=== PATIENT | female | born 1995 | race Caucasian/White ===

== ENCOUNTER → 2017-02-15 17:49 | Observation (INO) ==
[2017-02-15 17:31] LABS: Bilirubin,Urine Negative (Negative); Blood,Urine Negative (Negative); Clarity,Urine Cloudy (Clear); Color,Urine Yellow (Yellow); Glucose,Urine (UA) Normal (Normal); Ketones,Urine Negative (Negative); Leukocyte Esterase,Urine Negative (Negative); Nitrite,Urine Negative (Negative); PH,Urine 6.5 pH Units (5.0-8.0); Protein,Urine Negative (Neg-Trace); Urobilinogen,Urine Normal (Normal)
[2017-02-15 17:33] LABS: Bacteria,Urine None Seen per hpf (None-Few); Hyaline Casts,Urine None Seen per lpf (None-Few); RBC,Urine 0-3 per hpf (0-3); Squamous Epithelial Cell,Urine Many per lpf (None-Few)
[2017-02-15 17:36] LABS: Amphetamine Screen,Urine Negative ng/mL (Cutoff=1000); Barbiturate Screen,Urine Negative ng/mL (Cutoff=200); Benzodiazepines Screen,Urine Negative ng/mL (Cutoff=200); Cannabinoid Screen,Urine Negative ng/mL (Cutoff = 50); Cocaine Screen,Urine Negative ng/mL (Cutoff= 300); Opiate Screen,Urine Negative ng/mL (Cutoff=300); Phencyclidine Screen,Urine Negative ng/mL (Cutoff=25)
[2017-02-15 17:41] LABS: Amorphous Sediment,Urine Moderate (Few)
--- NOTE | 2017-02-15 17:47 | OB/GYN Progress Note ---
Date of Encounter: 02/15/17 Time of Encounter: 17:44 - Assessment and Plan (1) Constipation Current Visit: Yes Status: Acute Patient may return to emergency room, if desired, for constipation. Discussed importance of water during and increasing fruit/vegetable intake. Discussed trying otc medications such as colace BID and senekot at HS, if needed for constipation. Qualifiers: Constipation type: unspecified constipation type Qualified Code(s): K59.00 - Constipation, unspecified (2) 26 weeks gestation of Current Visit: Yes Status: Acute Follow up with Dr Garcia as scheduled for routine care and prn. Subjective - Subjective Principal diagnosis: Constipation Interval history: Ms Cisse a 21 year old at 26 weeks and 1 day gestation arrives from the emergency room to r/o labor. She complains of pressure in her "taint" and that she hasn't had a bowel movement since before Thanksgiving. She states that she does have blood from her rectum when wiping after an attempt to have a bowel movement. She states positive movement. She denies contractions, cramping, vaginal discharge, and vaginal bleeding. She is seen in the office by Dr Garcia. Her mother states that she has had problems with irregular bowels for a long time and will only drink apple juice and pop. Antepartum ROS: new complaints, movement normal, no vaginal bleeding, no contractions Objective - Exam FHR: auscultation normal, category 1 FHR comments: FHTs 150's appropriate for gestational age Abdomen: Present: normal appearance, soft, gravid Uterus: Absent: firm, tenderness Comments: SSE - cervix visually closed Vaginal exam - Closed, thick, high. No stool palpable in colon. - Labs Labs: Abnormal lab results Urine Clarity Cloudy (Clear) A 02/15/17 17:06 Urine Microscopic WBC 3-5 per hpf (0-3) H 02/15/17 17:06 Ur Squamous Epith Cells Many per lpf (None-Few) H 02/15/17 17:06 Amorphous Sediment Moderate (Few) H 02/15/17 17:06
== END | disposition home or self-care (01) ==
LOC: 1NENULAB
PROVIDERS: ADMIT Obstetrics & Gynecology; ATTEND Obstetrics & Gynecology

== ENCOUNTER → 2017-04-09 21:30 | Observation (INO) ==
[2017-04-09 20:43] LABS: Bilirubin,Urine Negative (Negative); Blood,Urine Negative (Negative); Clarity,Urine Cloudy (Clear); Color,Urine Yellow (Yellow); Glucose,Urine (UA) Normal (Normal); Ketones,Urine Negative (Negative); Leukocyte Esterase,Urine Negative (Negative); Nitrite,Urine Negative (Negative); PH,Urine 6.5 pH Units (5.0-8.0); Protein,Urine Negative (Neg-Trace); Specific Gravity,Urine 1.018 (1.010-1.025); Urobilinogen,Urine Normal (Normal)
[2017-04-09 20:45] LABS: Bacteria,Urine None Seen per hpf (None-Few); Hyaline Casts,Urine None Seen per lpf (None-Few); RBC,Urine 0-3 per hpf (0-3); Squamous Epithelial Cell,Urine Many per lpf (None-Few); WBC,Urine 0-3 per hpf (0-3)
[2017-04-09 20:52] LABS: Amphetamine Screen,Urine Negative ng/mL (Cutoff=1000); Barbiturate Screen,Urine Negative ng/mL (Cutoff=200); Benzodiazepines Screen,Urine Negative ng/mL (Cutoff=200); Cannabinoid Screen,Urine Negative ng/mL (Cutoff = 50); Cocaine Screen,Urine Negative ng/mL (Cutoff= 300); Opiate Screen,Urine Negative ng/mL (Cutoff=300); Phencyclidine Screen,Urine Negative ng/mL (Cutoff=25)
--- NOTE | 2017-04-15 08:58 | OB/GYN Progress Note ---
Date of Encounter: 04/09/17 Time of Encounter: 21:00 - Assessment and Plan (1) 33 weeks gestation of Status: Acute (2) uterine contractions in third trimester, antepartum Status: Acute SVE closed and thick. Discharge home with precautions. Pt encouraged to drink more water. (3) NST (non-stress test) reactive Status: Acute Subjective - Subjective Antepartum ROS: movement normal, contractions, no loss of fluid, no vaginal bleeding Objective - Exam FHR: category 1 FHR comments: NST reactive Auscultation: bilateral: normal Abdomen: Present: soft, gravid Uterus: Present: normal. Absent: tenderness Cervical dilation: closed/thick/high - Labs Labs: Abnormal lab results Urine Clarity Cloudy (Clear) A 04/09/17 20:39 Ur Squamous Epith Cells Many per lpf (None-Few) H 04/09/17 20:39
== END | disposition home or self-care (01) ==
LOC: 1NENULAB
PROVIDERS: ADMIT Obstetrics & Gynecology; ATTEND Obstetrics & Gynecology

== ENCOUNTER → 2017-04-28 16:30 | Observation (INO) ==
[2017-04-28 15:44] LABS: Bilirubin,Urine Negative (Negative); Blood,Urine Negative (Negative); Clarity,Urine Cloudy (Clear); Color,Urine Yellow (Yellow); Glucose,Urine (UA) Normal (Normal); Ketones,Urine Negative (Negative); Leukocyte Esterase,Urine Trace (Negative); Nitrite,Urine Negative (Negative); Protein,Urine Trace mg/dL (Neg-Trace); Specific Gravity,Urine 1.021 (1.010-1.025); Urobilinogen,Urine Normal (Normal)
[2017-04-28 15:53] LABS: Bacteria,Urine None Seen per hpf (None-Few); Hyaline Casts,Urine None Seen per lpf (None-Few); RBC,Urine 0-3 per hpf (0-3); Squamous Epithelial Cell,Urine Many per lpf (None-Few)
[2017-04-28 16:04] LABS: Amphetamine Screen,Urine Negative ng/mL (Cutoff=1000); Barbiturate Screen,Urine Negative ng/mL (Cutoff=200); Benzodiazepines Screen,Urine Negative ng/mL (Cutoff=200); Cannabinoid Screen,Urine Negative ng/mL (Cutoff = 50); Cocaine Screen,Urine Negative ng/mL (Cutoff= 300); Opiate Screen,Urine Negative ng/mL (Cutoff=300); Phencyclidine Screen,Urine Negative ng/mL (Cutoff=25)
--- NOTE | 2017-04-28 16:29 | OB/GYN Progress Note ---
Date of Encounter: 04/28/17 Time of Encounter: 16:27 - Assessment and Plan (1) 36 weeks gestation of Current Visit: Yes Status: Acute (2) Vaginal itching Current Visit: Yes Status: Acute Vaginosis panel obtained. Told patient she could use external Vagisil itch relief cream for the next 24 hours, but not to use internally. Discharged home with 1 to return to triage precautions. Vaginosis panel positive will send prescription through [facility] (3) NST (non-stress test) reactive Current Visit: No Status: Acute Baseline 135 Subjective - Subjective Interval history: 36+3 weeks gestation presents to triage for evaluation of vaginal itching and pain. Patient states over the last couple issues notice an increase and outer labial irritation and itching. She reports good movement, denies vaginal bleeding or leaking of fluid. Patient does say she has had an increased discharge over the last couple days Antepartum ROS: movement normal, no loss of fluid, no vaginal bleeding, no contractions Objective - Vital Signs Vital Signs: Intake and Output 04/28/17 04/28/17 04/28/17 07:59 15:59 23:59 Other: Weight 80.6 kg Patient Weight 04/28/17 23:59 Weight 80.6 kg - Exam FHR: auscultation normal FHR comments: Baseline 135 Abdomen: Present: normal appearance, soft, gravid Cervical dilation: /-3 - Labs Labs: Abnormal lab results Urine Clarity Cloudy (Clear) A 04/28/17 15:35 Ur Leukocyte Esterase Trace (Negative) H 04/28/17 15:35 Urine Microscopic WBC 3-5 per hpf (0-3) H 04/28/17 15:35 Ur Squamous Epith Cells Many per lpf (None-Few) H 04/28/17 15:35
[2017-04-28 17:33] LABS: Candida DNA ***DETECTED*** (Not Detect); Gardnerella DNA Not Detected (Not Detect); Trichomonas DNA Not Detected (Not Detect)
== END | disposition home or self-care (01) ==
LOC: 1NENULAB
PROVIDERS: ADMIT Obstetrics & Gynecology; ATTEND Obstetrics & Gynecology

== ENCOUNTER → 2017-05-06 00:15 | Observation (INO) ==
[2017-05-05 22:34] LABS: Bilirubin,Urine Negative (Negative); Blood,Urine Negative (Negative); Clarity,Urine Cloudy (Clear); Color,Urine Yellow (Yellow); Glucose,Urine (UA) Normal (Normal); Ketones,Urine 40 mg/dL (Negative); Leukocyte Esterase,Urine Trace (Negative); Nitrite,Urine Negative (Negative); PH,Urine 6.5 pH Units (5.0-8.0); Protein,Urine 30 mg/dL (Neg-Trace); Specific Gravity,Urine 1.014 (1.010-1.025); Urobilinogen,Urine Normal (Normal)
[2017-05-05 22:38] LABS: Bacteria,Urine Few per hpf (None-Few); Hyaline Casts,Urine Few per lpf (None-Few); RBC,Urine 0-3 per hpf (0-3); Squamous Epithelial Cell,Urine Many per lpf (None-Few)
[2017-05-05 22:41] LABS: Amphetamine Screen,Urine Negative ng/mL (Cutoff=1000); Barbiturate Screen,Urine Negative ng/mL (Cutoff=200); Benzodiazepines Screen,Urine Negative ng/mL (Cutoff=200); Cannabinoid Screen,Urine Negative ng/mL (Cutoff = 50); Cocaine Screen,Urine Negative ng/mL (Cutoff= 300); Opiate Screen,Urine Negative ng/mL (Cutoff=300); Phencyclidine Screen,Urine Negative ng/mL (Cutoff=25)
--- NOTE | 2017-05-05 23:23 | OB/GYN Progress Note ---
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 (2) Sciatic nerve pain Current Visit: Yes Status: Acute Qualifiers: Laterality: unspecified laterality Qualified Code(s): M54.30 - Sciatica, unspecified side (3) NST (non-stress test) reactive Current Visit: No Status: Acute Subjective - Subjective Principal diagnosis: Body aches, vaginal "lightning" Interval history: Ms Cisse is a 22 year old at 37 weeks 3 days gestation that arrives to labor and delivery with c/o increased fatigue, body aches, and low grade fever that is reduced by tylenol since 0400 this morning. She also c/o vaginal pain that is lightning like and bilateral leg numbness that comes and goes. This is complicated by an LGA fetus that had an EFW of 3664g 10 days ago. She denies headache, vision changes, epigastric pain, vaginal bleeding, and cramping. She states positive movement - decreased, but still having more than 6 movements per hour. She is seen by Dr Garcia in the office. Antepartum ROS: movement normal, no loss of fluid, no vaginal bleeding, no contractions Objective - Vital Signs Vital Signs: Intake and Output 05/05/17 05/05/17 05/05/17 07:59 15:59 23:59 Other: Weight 83.3 kg Patient Weight 05/05/17 23:59 Weight 83.3 kg - Exam FHR: auscultation normal, category 1 (140 baseline) FHR comments: irregular contractions Auscultation: bilateral: normal Abdomen: Present: normal appearance, soft, gravid Uterus: Present: normal. Absent: firm, bogginess, tenderness Cervical dilation: 1 Cervix effacement: thick station: -2 Comments: BLE trace to 1+ edema, 2+ reflexes Patient experienced vaginal lightning while in the room, no change in FHTs, no contraction per palpation. - Labs Labs: Abnormal lab results Urine Clarity Cloudy (Clear) A 05/05/17 22:22 Urine Protein 30 mg/dL (Neg-Trace) H 05/05/17 22:22 Urine Ketones 40 mg/dL (Negative) H 05/05/17 22:22 Ur Leukocyte Esterase Trace (Negative) H 05/05/17 22:22 Urine Microscopic WBC 3-5 per hpf (0-3) H 05/05/17 22:22 Ur Squamous Epith Cells Many per lpf (None-Few) H 05/05/17 22:22
[2017-05-05 23:49] LABS: Protein/Creatinine Ratio,Urine 0.23 mg/mg (0.00-0.20)
== END | disposition home or self-care (01) ==
LOC: 1NENULAB
PROVIDERS: ADMIT Advanced Practice Midwife; ATTEND Advanced Practice Midwife

== ENCOUNTER → 2017-05-10 22:38 | Observation (INO) ==
[2017-05-10 21:58] LABS: Bilirubin,Urine Negative (Negative); Blood,Urine Negative (Negative); Color,Urine Yellow (Yellow); Glucose,Urine (UA) Normal (Normal); Ketones,Urine Negative (Negative); Leukocyte Esterase,Urine Negative (Negative); Nitrite,Urine Negative (Negative); PH,Urine 6.5 pH Units (5.0-8.0); Protein,Urine 30 mg/dL (Neg-Trace); Specific Gravity,Urine 1.023 (1.010-1.025); Urobilinogen,Urine Normal (Normal)
[2017-05-10 22:00] LABS: Clarity,Urine Hazy (Clear); Hyaline Casts,Urine None Seen per lpf (None-Few); RBC,Urine 0-3 per hpf (0-3); Squamous Epithelial Cell,Urine Many per lpf (None-Few)
[2017-05-10 22:04] LABS: Amphetamine Screen,Urine Negative ng/mL (Cutoff=1000); Barbiturate Screen,Urine Negative ng/mL (Cutoff=200); Benzodiazepines Screen,Urine Negative ng/mL (Cutoff=200); Cannabinoid Screen,Urine Negative ng/mL (Cutoff = 50); Cocaine Screen,Urine Negative ng/mL (Cutoff= 300); Opiate Screen,Urine Negative ng/mL (Cutoff=300); Phencyclidine Screen,Urine Negative ng/mL (Cutoff=25)
[2017-05-10 22:14] LABS: Bacteria,Urine Few per hpf (None-Few)
[2017-05-10 22:25] LABS: Protein/Creatinine Ratio,Urine 0.27 mg/mg (0.00-0.20)
--- NOTE | 2017-05-10 22:30 | OB/GYN Progress Note ---
Date of Encounter: 05/10/17 Time of Encounter: 22:28 - Assessment and Plan (1) 38 weeks gestation of Current Visit: Yes Status: Acute Seen only by nursing Reactive NST Mild headache, normal BP, Urine increased protein, normal urine protein creatinine Discharge with labor precautions Discharge home with follow up in office with routine care as scheduled within one week, and PRN (2) NST (non-stress test) reactive Current Visit: No Status: Acute Subjective - Subjective Principal diagnosis: Contractions lost mucous plug last night Interval history: Seen by nurses only for contractions throughout the day and lost mucous plug last night. Would "like to be induced because my baby is huge". Patient is not 39 weeks, encouraged to follow up with routine care in the office. Antepartum ROS: movement normal, contractions, no loss of fluid, no vaginal bleeding Objective - Exam FHR: auscultation normal, category 1 FHR comments: Contractions irregular to every 10 minutes over a 1 hour time period Cervical dilation: 1-2 Cervix effacement: 60 station: -1 Comments: Per RN exam - Labs Labs: Abnormal lab results Urine Clarity Hazy (Clear) A 05/10/17 21:40 Urine Protein 30 mg/dL (Neg-Trace) H 05/10/17 21:40 Urine Microscopic WBC 3-5 per hpf (0-3) H 05/10/17 21:40 Ur Squamous Epith Cells Many per lpf (None-Few) H 05/10/17 21:40 Protein/Creatinin Ratio 0.27 mg/mg (0.00-0.20) H 05/10/17 21:40 Urine Total Protein 49 mg/dL (1-14) H 05/10/17 21:40
== END | disposition home or self-care (01) ==
LOC: 1NENULAB
PROVIDERS: ADMIT Advanced Practice Midwife; ATTEND Advanced Practice Midwife

== ENCOUNTER → 2021-06-09 10:42 | Observation (INO) ==
[2021-06-09 10:35] LABS: Amorphous Sediment,Urine Few per hpf (None-Few); Bacteria,Urine Few per hpf (None-Few); Bilirubin,Urine Negative (Negative); Blood,Urine Negative (Negative); Clarity,Urine Turbid (Clear); Color,Urine Light-Yellow (Yellow); Glucose,Urine (UA) Normal (Normal); Ketones,Urine Negative (Negative); Leukocyte Esterase,Urine Negative (Negative); Mucus,Urine Few per lpf (None-Few); Nitrite,Urine Negative (Negative); Protein,Urine Trace mg/dL (Neg-Trace); RBC,Urine 0-3 per hpf (0-3); Specific Gravity,Urine 1.016 (1.010-1.025); Squamous Epithelial Cell,Urine Few per hpf (None-Few); Urobilinogen,Urine Normal (Normal); WBC,Urine 0-3 per hpf (0-3)
== END | disposition home or self-care (01) ==
LOC: 1NENULAB
PROVIDERS: ADMIT Obstetrics & Gynecology; ATTEND Obstetrics & Gynecology

== ENCOUNTER → 2021-06-14 02:50 | Observation (INO) ==
[2021-06-14 00:45] LABS: Bacteria,Urine Few per hpf (None-Few); Bilirubin,Urine Negative (Negative); Blood,Urine Negative (Negative); Clarity,Urine Turbid (Clear); Color,Urine Yellow (Yellow); Glucose,Urine (UA) Normal (Normal); Ketones,Urine Negative (Negative); Leukocyte Esterase,Urine Small (Negative); Mucus,Urine Few per lpf (None-Few); Nitrite,Urine Negative (Negative); PH,Urine 6.5 pH Units (5.0-8.0); Protein,Urine 30 mg/dL (Neg-Trace); Squamous Epithelial Cell,Urine Many per hpf (None-Few); WBC,Urine 0-3 per hpf (0-3)
[2021-06-14 02:02] LABS: Candida DNA DETECTED (Not Detect); Gardnerella DNA Not Detected (Not Detect); Trichomonas DNA Not Detected (Not Detect)
== END | disposition home or self-care (01) ==
LOC: 1NENULAB
PROVIDERS: ADMIT Registered Nurse; ATTEND Registered Nurse

== ENCOUNTER → 2021-07-12 17:03 | Observation (INO) ==
[2021-07-12 14:47] LABS: Bacteria,Urine Moderate per hpf (None-Few); Bilirubin,Urine Negative (Negative); Blood,Urine Negative (Negative); Clarity,Urine Turbid (Clear); Color,Urine Light-Yellow (Yellow); Glucose,Urine (UA) Normal (Normal); Ketones,Urine Negative (Negative); Leukocyte Esterase,Urine Moderate (Negative); Mucus,Urine Few per lpf (None-Few); Nitrite,Urine Negative (Negative); Protein,Urine Trace mg/dL (Neg-Trace); RBC,Urine 0-3 per hpf (0-3); Renal Epithelial Cells,Urine Few per hpf (None-Few); Specific Gravity,Urine 1.011 (1.010-1.025); Squamous Epithelial Cell,Urine Many per hpf (None-Few); Transitional Epi Cells,Urine Few per hpf (None-Few)
[~2021-07-12 17:03] MED LIST: Ringers Solution, Lactated 1,000 ML IVC ONE; Ringers Solution, Lactated 1,000 ML IVC SCH
== END | disposition home or self-care (01) ==
LOC: 1NENULAB
PROVIDERS: ADMIT Student in an Organized Health Care Education/Training Program; ATTEND Student in an Organized Health Care Education/Training Program

== ENCOUNTER → 2021-07-13 18:03 | Observation (INO) | END | disposition home or self-care (01) | LOC: 1NENULAB | PROVIDERS: ADMIT Obstetrics & Gynecology; ATTEND Obstetrics & Gynecology ==

== ENCOUNTER 2021-07-19 16:29 | Inpatient (IN) ==
[2021-07-19 15:10] LABS: Bacteria,Urine Few per hpf (None-Few); Bilirubin,Urine Negative (Negative); Blood,Urine Negative (Negative); Clarity,Urine Turbid (Clear); Color,Urine Yellow (Yellow); Glucose,Urine (UA) Normal (Normal); Ketones,Urine Negative (Negative); Leukocyte Esterase,Urine Negative (Negative); Mucus,Urine Few per lpf (None-Few); Nitrite,Urine Negative (Negative); PH,Urine 6.5 pH Units (5.0-8.0); Protein,Urine 30 mg/dL (Neg-Trace); RBC,Urine 0-3 per hpf (0-3); Specific Gravity,Urine 1.019 (1.010-1.025); Squamous Epithelial Cell,Urine Moderate per hpf (None-Few)
[2021-07-19 15:13] LABS: Hematocrit 30.1 % (35.3-44.9); Hemoglobin 9.7 g/dL (11.5-15.4); Lymphocytes # 1.9 K/mcL (0.6-4.6); Mean Corpuscular HGB Conc 32.2 g/dL (31.6-35.5); Mean Corpuscular Hemoglobin 26.4 pg (28.0-33.3); Mean Platelet Volume 10.3 fL (9.4-12.4); Nucleated Red Blood Cells 0.2 /100 WBC (0); Platelet Count 279 K/mcL (140-400); Red Blood Count 3.67 M/mcL (3.82-4.97); White Blood Count 13.2 K/mcL (4.3-11.1)
[2021-07-19 15:20] LABS: Amphetamine Screen,Urine Negative ng/mL (Cutoff=1000); Barbiturate Screen,Urine Negative ng/mL (Cutoff=200); Benzodiazepines Screen,Urine Negative ng/mL (Cutoff=200); Cannabinoid Screen,Urine Negative ng/mL (Cutoff = 50); Cocaine Screen,Urine Negative ng/mL (Cutoff= 300); Opiate Screen,Urine Negative ng/mL (Cutoff=300); Phencyclidine Screen,Urine Negative ng/mL (Cutoff=25)
[2021-07-19 15:43] LABS: Influenza A PCR Negative (Negative); Influenza B PCR Negative (Negative); Resp. Syncytial Virus PCR Negative (Negative)
[2021-07-19 15:44] LABS: SARS-CoV-2 by PCR (In House) Negative (Negative)
[2021-07-19 16:07] LABS: Anisocytosis 1+ (Not Present); Monocytes # 0.3 K/mcL (0.0-1.3); Neutrophils # 10.8 K/mcL (1.6-8.9); Platelet Estimate Normal (Normal); Polychromasia 1+ (Not Present)
[~2021-07-19 16:29] MED LIST changes: +CeFAZolin 2,000 MG/120 ML BAG IVPB ONE; +Famotidine 20 MG/2 ML VIAL IVP ONE; +Metoclopramide 10 MG/2 ML VIAL IVP ONE; +Naloxone 0.4 MG/ML INJ IVP PRN; +Ondansetron 4 MG/2 ML VIAL IVP PRN; +Oxytocin 30 UNIT/503 ML BAG IVC SCH; -Ringers Solution, Lactated 1,000 ML IVC ONE
[2021-07-19] MEDS ORDERED: *HR* Morphine Sulfate/PF 10 MG/10 ML AMPUL ONE (18:01)
[2021-07-19] MEDS ORDERED: *HR* FentaNYL (PF) 100 MCG/2 ML VIAL ONE (18:01)
[2021-07-19] MEDS ORDERED: Ondansetron 4 MG/2 ML VIAL ONE (18:02)
[2021-07-19] MEDS ORDERED: Acetaminophen IV 1,000 MG/100 ML BAG IVPB ONE (18:15)
[2021-07-19] MEDS ORDERED: Ketorolac 30 MG/ML VIAL ONE (18:15)
[2021-07-19] MEDS ORDERED: Oxytocin 30 UNIT/503 ML BAG IVC SCH (21:50)
[2021-07-19] MEDS ORDERED: Ondansetron 4 MG/2 ML VIAL IVP PRN (21:50)
[2021-07-19] MEDS ORDERED: Rho Immune Globulin 1,500 UNIT SYRINGE IM ONE (21:50)
[2021-07-19] MEDS ORDERED: Metoclopramide 10 MG/2 ML VIAL IVP PRN (21:50)
[2021-07-19] MEDS: Ibuprofen 600 MG TABLET PO SCH (23:08)
[2021-07-19] MEDS: Acetaminophen 325 MG TABLET PO SCH (23:09)
[2021-07-20] MEDS: Ringers Solution, Lactated 1,000 ML IVC SCH ×2 (00:47→07:03)
[2021-07-20 03:42] LABS: Basophils # 0.1 K/mcL (0.0-0.2); Basophils % 0.6 %; Eosinophils % 0.3 %; Hematocrit 28.2 % (35.3-44.9); Hemoglobin 8.9 g/dL (11.5-15.4); Immature Granulocytes % 3.3 % (0-4); Lymphocytes # 1.7 K/mcL (0.6-4.6); Lymphocytes % 11.9 %; Mean Corpuscular HGB Conc 31.6 g/dL (31.6-35.5); Mean Corpuscular Hemoglobin 26.4 pg (28.0-33.3); Mean Corpuscular Volume 83.7 fL (83.0-100.0); Mean Platelet Volume 10.1 fL (9.4-12.4); Monocytes % 7.1 %; Neutrophils # 11.1 K/mcL (1.6-8.9); Platelet Count 229 K/mcL (140-400); Red Blood Count 3.37 M/mcL (3.82-4.97); Red Cell Distribution Width 12.7 % (11.5-14.5); Segmented Neutrophils % 76.8 %; White Blood Count 14.5 K/mcL (4.3-11.1)
[2021-07-20] MEDS: Ibuprofen 600 MG TABLET PO SCH ×4 (06:32→23:50)
[2021-07-20] MEDS: Acetaminophen 325 MG TABLET PO SCH ×4 (06:32→23:50)
[2021-07-20] MEDS: Prenatal Vit/FA 1 EACH TABLET PO SCH (08:12)
[2021-07-20] MEDS ORDERED: Ringers Solution, Lactated 500 ML IVC ONE (09:47)
[2021-07-20] MEDS: *HR* OxyCODONE Immed Rel 5 MG TABLET PO PRN (17:35)
[2021-07-20 20:23] VITALS: TEMP 98.2
[2021-07-20] MEDS: Simethicone 80 MG TAB.CHEW PO PRN (20:31)
[2021-07-21 06:31] VITALS: BP 122/74; PULSE 86; O2SAT 95
[2021-07-21] MEDS: *HR* OxyCODONE Immed Rel 5 MG TABLET PO PRN ×2 (08:11→13:04)
[2021-07-21] MEDS: Ibuprofen 600 MG TABLET PO SCH ×3 (08:11→14:36)
[2021-07-21] MEDS: Prenatal Vit/FA 1 EACH TABLET PO SCH (08:11)
[2021-07-21] MEDS: Simethicone 80 MG TAB.CHEW PO PRN (10:01)
[2021-07-21] MEDS: Acetaminophen 325 MG TABLET PO SCH ×2 (10:01→14:36)
[2021-07-21] MEDS ORDERED: Bisacodyl 10 MG RECTAL SUPPOSITORY RC ONE (10:16)
[2021-07-21 14:11] LABS: Basophils # 0.1 K/mcL (0.0-0.2); Basophils % 0.8 %; Eosinophils # 0.2 K/mcL (0.0-0.6); Eosinophils % 1.5 %; Hematocrit 28.4 % (35.3-44.9); Hemoglobin 8.8 g/dL (11.5-15.4); Immature Granulocytes % 5.3 % (0-4); Lymphocytes # 1.9 K/mcL (0.6-4.6); Mean Corpuscular Hemoglobin 26.6 pg (28.0-33.3); Mean Corpuscular Volume 85.8 fL (83.0-100.0); Mean Platelet Volume 10.5 fL (9.4-12.4); Monocytes # 0.8 K/mcL (0.0-1.3); Monocytes % 5.4 %; Neutrophils # 10.8 K/mcL (1.6-8.9); Platelet Count 309 K/mcL (140-400); Red Blood Count 3.31 M/mcL (3.82-4.97); Red Cell Distribution Width 13.3 % (11.5-14.5); White Blood Count 14.6 K/mcL (4.3-11.1)
[2021-07-21 14:43] LABS: Alanine Aminotransferase 7 Units/L (7-52); Amylase 17 Units/L (29-103); Aspartate Amino Transferase 22 Units/L (13-39); BUN/Creatinine Ratio 11 (6-26); Blood Urea Nitrogen 8 mg/dL (6-20); Lipase 19 Units/L (11-82); eGFR For African Americans > 60 (> 60); eGFR For Non-African Americans > 60 (> 60)
[2021-07-21 16:00] LABS: Large Platelets Present (Not Present); Platelet Estimate Normal (Normal)
== END 2021-07-21 15:23 | disposition home or self-care (01) | DRG 540 ==
LOC: 1NENULAB → 1NENUOBS 21:41
PROVIDERS: ADMIT Obstetrics & Gynecology; ATTEND Obstetrics & Gynecology